=== PATIENT | male | born 1970 | race Caucasian/White ===

== ENCOUNTER → 2020-05-13 | Outpatient (REF) | payer OTHER ==
[2020-05-13 14:31] LABS: ALBUMIN 4.3 GM/DL (3.2-5.2); ALT/SGPT 34 U/L (12-78); BILIRUBIN,TOTAL 0.8 MG/DL (0.2-1.0); BLOOD UREA NITROGEN 12 MG/DL (7-18); CALCIUM LEVEL 9.5 MG/DL (8.5-10.1); CARBON DIOXIDE LEVEL 30 MEQ/L (21-32); CHLORIDE LEVEL 104 MEQ/L (98-107); CHOLESTEROL LEVEL 254 MG/DL (<200); CHOLESTEROL RISK RATIO 6.684 (<5); CREATININE FOR GFR 1.05 MG/DL (0.70-1.30); GLOMERULAR FILTRATION RATE > 60.0 (>56); GLUCOSE, FASTING 94 MG/DL (70-100); HDL CHOLESTEROL 38 MG/DL (>40); LDL CHOLESTEROL 179 MG/DL (<100); NON-HDL-C 216 MG/DL; POTASSIUM SERUM 4.8 MEQ/L (3.5-5.1); SODIUM LEVEL 139 MEQ/L (136-145); TOTAL PROTEIN 7.5 GM/DL (6.4-8.2); TRIGLYCERIDES LEVEL 183 MG/DL (<150)
== END ==
LOC: M LAB REF 13:22 → M PLALAB 13:22
PROVIDERS: ATTEND Nurse Practitioner Family
DX: E78.2 Mixed hyperlipidemia (principal)

== ENCOUNTER → 2020-06-13 | Outpatient (CLI) | payer OTHER | LOC: M LABSMTC 10:10 | PROVIDERS: ATTEND Anesthesiology | DX: Z01.812 Encounter for preprocedural laboratory examination (principal); Z20.822 Contact with and (suspected) exposure to COVID-19 ==

== ENCOUNTER 2020-06-18 07:40 | Day surgery (SDC) | payer OTHER ==
[~2020-06-18] VITALS: Ht 175.3 cm; Wt 83.5 kg
[~2020-06-18 07:40] MED LIST: NS 1,000 ML IV ONE
[2020-06-18] MEDS ORDERED: propofoL 200 MG/20 ML VIAL As Ordered ONE (09:20)
--- NOTE | 2020-06-18 09:25 | ROOR ---
Patient Name: Ministerio Smith Procedure Date: 06/18/2020 9:08 AM Date of : 1970 Age: 49 Room: [facility] Gender: Male Note Status: Finalized Procedure: Colonoscopy Indications: Screening for colorectal malignant neoplasm Providers: DO Julieta Franklin MD: Elda Souza NP Requesting Provider: Medicines: Propofol per Anesthesia Complications: No immediate complications. Procedure: Pre-Anesthesia Assessment: - Prior to the procedure, a History and Physical was performed, and patient medications and allergies were reviewed. The patient is competent. The risks and benefits of the procedure and the sedation options and risks were discussed with the patient. All questions were answered and informed consent was obtained. Patient identification and proposed procedure were verified by the physician, the nurse, the anesthesiologist and the instrument and control technician in the endoscopy suite. Mental Status Examination: alert and oriented. Airway Examination: normal oropharyngeal airway and neck mobility. Respiratory Examination: clear to auscultation. CV Examination: normal. Prophylactic Antibiotics: The patient does not require prophylactic antibiotics. Prior Anticoagulants: The patient has taken no previous anticoagulant or antiplatelet agents. ASA Grade Assessment: II - A patient with mild systemic disease. After reviewing the risks and benefits, the patient was deemed in satisfactory condition to undergo the procedure. The anesthesia plan was to use monitored anesthesia care (MAC). Immediately prior to administration of medications, the patient was re-assessed for adequacy to receive sedatives. The heart rate, respiratory rate, oxygen saturations, blood pressure, adequacy of pulmonary ventilation, and response to care were monitored throughout the procedure. The physical status of the patient was re-assessed after the procedure. The Colonoscope was introduced through the anus and advanced to the cecum, identified by appendiceal orifice and ileocecal valve. The colonoscopy was performed without difficulty. The patient tolerated the procedure well. Findings: Non-bleeding internal hemorrhoids were found during retroflexion. The hemorrhoids were Grade I (internal hemorrhoids that do not prolapse). Impression: - Non-bleeding internal hemorrhoids. - No specimens collected. Recommendation: - Repeat colonoscopy in 5-10 years for screening purposes. - Return to my office PRN. Procedure Code(s): --- Professional --- G0121, Colorectal cancer screening; colonoscopy on individual not meeting criteria for high risk Diagnosis Code(s): --- Professional --- Z12.11, Encounter for screening for malignant neoplasm of colon K64.0, First degree hemorrhoids CPT copyright 2019 [employer]. All rights reserved. The codes documented in this report are preliminary and upon activity leader review may be revised to meet current compliance requirements. Pierre Fragoso DO 06/18/2020 9:25:09 AM Electronically signed by Pierre Fragoso DO Number of Addenda: 0 Note Initiated On: 06/18/2020 9:08 AM Estimated Blood Loss: Estimated blood loss: none.
[2020-06-18 09:45] VITALS: BP 171/88
== END 2020-06-18 10:10 | disposition home or self-care (01) ==
LOC: M OPP 07:40
PROVIDERS: ATTEND Surgery
DX: Z12.11 Encounter for screening for malignant neoplasm of colon (principal); K64.0 First degree hemorrhoids; E78.5 Hyperlipidemia, unspecified

== ENCOUNTER → 2020-09-12 | Outpatient (CLI) | payer OTHER ==
--- NOTE | 2020-09-12 09:56 | REP ---
INDICATION: PAIN, LATERAL EPICONDYLITIS. COMPARISON: None. TECHNIQUE: AP and lateral views of the right elbow are provided. FINDINGS: AP and lateral views of the right elbow demonstrate minimal coronoid process spurring. No evidence of joint effusion. No epicondylar or other spur formation is seen. Alignment is normal. IMPRESSION: Mild coronoid process spurring. Otherwise negative right elbow radiographs. <Electronically signed by Arnulfo Lin > 09/12/20 [id number]
--- NOTE | 2020-09-12 09:57 | REP ---
INDICATION: PAIN, LATERAL EPICONDYLITIS. COMPARISON: None. TECHNIQUE: Four views of the right wrist are provided. FINDINGS: Four views of the right wrist demonstrate overall normal mineralization. Joint spaces are preserved. There is a bone island noted in the distal radius. Bones, joints, and soft tissues are radiographically unremarkable. IMPRESSION: Negative views of the right wrist. <Electronically signed by Arnulfo Lin > 09/12/20 [id number]
== END ==
LOC: M SOG 08:32
PROVIDERS: ATTEND Orthopaedic Surgery Sports Medicine
DX: M77.11 Lateral epicondylitis, right elbow (principal); M25.531 Pain in right wrist

== ENCOUNTER → 2020-09-29 | Outpatient (CLI) | payer OTHER ==
--- NOTE | 2020-09-30 08:58 | REP ---
INDICATION: GAGLION RT WRIST W/ PAIN ASSESS LESION. COMPARISON: None. TECHNIQUE: Axial T1. Coronal fat suppressed proton density, fat suppressed T2, and T1 multi-gradient. Sagittal T2 and T2 STIR. Examination was performed before and after intravenous gadolinium. 16 cc of ProHance was administered intravenously. FINDINGS: The technologist has placed skin markers identifying the region of interest. Seen abutting the flexor carpi radialis tendon both ventrally and laterally there is a multi septated somewhat irregular mixed but predominantly T2 hyper signal lesion which measures approximately 2.3 by 0.9 by 1.4 cm. There is minimal enhancement in the soft tissues abutting the lesion without actual lesional enhancement. All imaged flexor and extensor tendons are intact and of normal appearing low signal throughout. There is evidence of mild anterior bowing of the flexor retinaculum. There is no abnormal enhancement of the imaged portion of the median nerve. The triangular fibrocartilage complex is intact. The scapholunate and lunatotriquetral ligaments are intact. The articular surfaces are relatively smooth. The marrow signal is within normal limits. IMPRESSION: Complex predominantly cystic appearing lesion in the ventral lateral soft tissues, as described above, highly suggestive of a ganglion cyst. <Electronically signed by Roger Blum > 09/30/20 [id number]
== END ==
LOC: M PLAIMG 15:24
PROVIDERS: ATTEND Orthopaedic Surgery Sports Medicine
DX: M67.431 Ganglion, right wrist (principal)

== ENCOUNTER → 2020-11-18 | Outpatient (RCR) | payer OTHER | LOC: M OT 10-22 08:01 | PROVIDERS: ATTEND Orthopaedic Surgery Sports Medicine | DX: M17.11 Unilateral primary osteoarthritis, right knee (principal) ==

== ENCOUNTER 2020-12-15 08:10 | Outpatient (RCR) | payer OTHER | END 2020-12-18 | LOC: M OT 08:10 | PROVIDERS: ATTEND Orthopaedic Surgery Sports Medicine | DX: M77.11 Lateral epicondylitis, right elbow (principal); M67.431 Ganglion, right wrist ==

== ENCOUNTER 2021-01-08 08:12 | Outpatient (RCR) | payer OTHER | END 2021-01-18 | LOC: M OT 08:12 | PROVIDERS: ATTEND Orthopaedic Surgery Sports Medicine | DX: M77.11 Lateral epicondylitis, right elbow (principal) ==

== ENCOUNTER 2021-03-19 08:11 | Outpatient (RCR) | payer OTHER | END 2021-03-20 | LOC: M OT 08:11 | PROVIDERS: ATTEND Orthopaedic Surgery Sports Medicine | DX: M67.431 Ganglion, right wrist (principal) ==

== ENCOUNTER 2021-04-13 08:15 | Outpatient (RCR) | payer OTHER | END 2021-04-20 | LOC: M OT 08:15 | PROVIDERS: ATTEND Orthopaedic Surgery Sports Medicine | DX: M67.431 Ganglion, right wrist (principal) ==

== ENCOUNTER → 2021-06-23 | Outpatient (REF) | payer OTHER | LOC: M SFHCDERM 16:01 | PROVIDERS: ATTEND Nurse Practitioner Family | DX: D22.5 Melanocytic nevi of trunk (principal); L98.9 Disorder of the skin and subcutaneous tissue, unspecified ==

== ENCOUNTER → 2021-12-24 | Outpatient (REF) | payer OTHER, BC | LOC: M SFHCDERM 14:06 | PROVIDERS: ATTEND Nurse Practitioner Family | DX: D23.61 Other benign neoplasm of skin of right upper limb, including shoulder (principal) ==

== ENCOUNTER → 2022-05-21 | Outpatient (CLI) | payer BC ==
[2022-05-21 14:41] LABS: ALBUMIN 4.3 G/DL (3.2-5.2); ALKALINE PHOSPHATASE 60 U/L (46-116); ALT/SGPT 32 U/L (7.0-40); AST/SGOT 22 U/L (<34); BILIRUBIN,TOTAL 0.7 MG/DL (0.3-1.2); BLOOD UREA NITROGEN 10 MG/DL (9-23); CALCIUM LEVEL 9.1 MG/DL (8.5-10.1); CARBON DIOXIDE LEVEL 30 MMOL/L (20-31); CHLORIDE LEVEL 105 MMOL/L (98-107); CHOLESTEROL LEVEL 246 MG/DL (<200); CHOLESTEROL RISK RATIO 6.13 (<5); CREATININE FOR GFR 0.96 MG/DL (0.70-1.30); GLOMERULAR FILTRATION RATE > 60.0 (>56); GLUCOSE, FASTING 94 MG/DL (60-100); HDL CHOLESTEROL 40.1 MG/DL (>40); LDL CHOLESTEROL 159.3 MG/DL (<100); NON-HDL-C 206 MG/DL; POTASSIUM SERUM 4.5 MMOL/L (3.5-5.1); SODIUM LEVEL 141 MMOL/L (136-145); TOTAL PROTEIN 7.2 G/DL (5.7-8.2); TRIGLYCERIDES LEVEL 233 MG/DL (<150)
== END ==
LOC: M PLALAB 09:29
PROVIDERS: ATTEND Nurse Practitioner Family
DX: E78.2 Mixed hyperlipidemia (principal)

== ENCOUNTER → 2023-11-24 | Outpatient (CLI) | payer BC ==
[2023-11-24 16:00] LABS: ALBUMIN 4.4 G/DL (3.2-5.2); ALKALINE PHOSPHATASE 72 U/L (46-116); ALT/SGPT 32 U/L (7.0-40); AST/SGOT 28 U/L (<34); BILIRUBIN,TOTAL 0.9 MG/DL (0.3-1.2); BLOOD UREA NITROGEN 10 MG/DL (9-23); CALCIUM LEVEL 9.7 MG/DL (8.5-10.1); CARBON DIOXIDE LEVEL 27 MMOL/L (20-31); CHLORIDE LEVEL 107 MMOL/L (98-107); CHOLESTEROL LEVEL 239 MG/DL (<200); CREATININE FOR GFR 0.97 MG/DL (0.70-1.30); GLOMERULAR FILTRATION RATE > 60.0 (>56); GLUCOSE, FASTING 90 MG/DL (60-100); HDL CHOLESTEROL 37.3 MG/DL (>40); LDL CHOLESTEROL 153.7 MG/DL (<100); NON-HDL-C 201.7 MG/DL; POTASSIUM SERUM 4.1 MMOL/L (3.5-5.1); SODIUM LEVEL 139 MMOL/L (136-145); TOTAL PROTEIN 7.5 G/DL (5.7-8.2); TRIGLYCERIDES LEVEL 240 MG/DL (<150)
== END ==
LOC: M PLALAB 13:37
PROVIDERS: ATTEND Nurse Practitioner Family
DX: E78.2 Mixed hyperlipidemia (principal)

== ENCOUNTER → 2024-01-12 | Outpatient (CLI) | payer BC | LOC: M PLARAD 10:16 | PROVIDERS: ATTEND Physician Assistant | DX: M67.431 Ganglion, right wrist (principal) ==

== ENCOUNTER 2024-02-13 10:30 | Day surgery (SDC) | payer BC ==
[~2024-02-13] VITALS: Ht 175.3 cm; Wt 82.6 kg
[2024-02-13] MEDS ORDERED: ZINC220T3 PO (11:23)
[2024-02-13] MEDS ORDERED: VITA100T59 PO (11:23)
[2024-02-13] MEDS ORDERED: LR 1,000 ML IV SCH (11:40)
[2024-02-13] MEDS ORDERED: ONDANSETRON 4MG 2ML VIAL As Ordered ONE (11:59)
[2024-02-13] MEDS ORDERED: KETOROLAC 60MG 2ML VIAL As Ordered ONE (11:59)
[2024-02-13] MEDS ORDERED: propofoL 200 MG/20 ML VIAL As Ordered ONE (12:00)
[2024-02-13] MEDS ORDERED: LIDOCAINE 2% 100MG/5ML SDV (FOR ANES.) As Ordered ONE (12:00)
[2024-02-13] MEDS ORDERED: fentaNYL 100 MCG/2 ML INJECTION As Ordered ONE (12:01)
[2024-02-13] MEDS ORDERED: MIDAZOLAM INJ 2MG/2ML VIAL As Ordered ONE (12:01)
[2024-02-13] MEDS: ceFAZolin 2 GM/D5W 50 ML IV BAG As Ordered ONE (13:46)
[2024-02-13] MEDS: BACITRACIN OINTMENT 30GM TUBE As Ordered ONE (14:00)
[2024-02-13] MEDS ORDERED: fentaNYL 100 MCG/2 ML INJECTION IV PRN (14:15)
[2024-02-13] MEDS ORDERED: ONDANSETRON 4MG 2ML VIAL IV PRN (14:15)
[2024-02-13] MEDS ORDERED: PERC5TAB12 PO (14:37)
[2024-02-13 15:23] VITALS: BP 128/73; TEMP 97.2; O2SAT 100
== END 2024-02-13 15:29 | disposition home or self-care (01) ==
LOC: M SDC 10:30
PROVIDERS: ATTEND Orthopaedic Surgery Hand Surgery
DX: M67.431 Ganglion, right wrist (principal)
CPT/HCPCS: 25111; 88305; J0665; J0690; J1100; J1885; J2250; J2405; J3010

== ENCOUNTER → 2024-11-23 | Outpatient (CLI) | payer BC ==
[~2024-11-23] MED LIST changes: -NS 1,000 ML IV ONE; +PERC5TAB12 PO; +VITA100T59 PO; +ZINC220T3 PO
[2024-11-23 14:11] LABS: BASO # 0.1 10^3/uL (0.0-0.2); BASO % 1.2 % (0.0-1.0); EOS # 0.2 10^3/uL (0.0-0.5); EOS % 3.0 % (0.0-3.0); LYMPH # 1.7 10^3/uL (1.5-5.0); LYMPH % 28.5 % (24.0-44.0); MONO # 0.5 10^3/uL (0.0-0.8); MONO % 8.2 % (2.0-8.0); NEUTROPHILS # 3.6 10^3/uL (1.5-8.5); NEUTROPHILS % 58.9 % (36.0-66.0); PLATELET COUNT, AUTOMATED 302 10^3/uL (150-450)
[2024-11-23 14:19] LABS: ALT/SGPT 38.0 U/L (7.0-40); AST/SGOT 32.0 U/L (<34); CALCIUM LEVEL 9.4 MG/DL (8.5-10.1); CARBON DIOXIDE LEVEL 27.0 MMOL/L (20-31); CHLORIDE LEVEL 106.0 MMOL/L (98-107); CHOLESTEROL LEVEL 234.0 MG/DL (<200); CHOLESTEROL RISK RATIO 6.61 (<5); CREATININE FOR GFR 0.99 MG/DL (0.70-1.30); GLOMERULAR FILTRATION RATE 90.0 (>56); LDL CHOLESTEROL 135.2 MG/DL (<100); NON-HDL-C 198.6 MG/DL; POTASSIUM SERUM 4.3 MMOL/L (3.5-5.1); SODIUM LEVEL 143.0 MMOL/L (136-145); TRIGLYCERIDES LEVEL 317.0 MG/DL (<150)
[2024-11-23 14:21] LABS: FREE T4 1.22 NG/DL (0.89-1.76)
== END ==
LOC: M PLALAB 08:15
PROVIDERS: ATTEND Nurse Practitioner Family
DX: E78.2 Mixed hyperlipidemia (principal); R03.0 Elevated blood-pressure reading, without diagnosis of hypertension